=== PATIENT | male | born 1945 | race African-American/Black ===

== ENCOUNTER 2019-10-16 11:43 | Inpatient (IN) ==
--- NOTE | 2019-10-16 12:38 | Diag Imaging Result Doc PS360 ---
CHEST-1 VIEW - 10/16/2019 INDICATION: sob COMPARISON: None FINDINGS: There is significant cardiomegaly and pulmonary vascular congestion. There is diffuse interstitial pulmonary edema. There are some opacities in the right lung base that are likely a small to moderate pleural effusion. IMPRESSION: Congestive heart failure. Electronically signed by Kimo Ashton 10/16/2019 12:36 PM
[2019-10-16 14:09] LABS: BASO# 0.03 X1000 (0.0-0.2); BASO% 0.5 % (0.0-0.8); EOS# 0.07 X1000 (0.0-0.7); EOS% 1.1 % (0.0-10.0); HEMATOCRIT 27.2 % (42.0-52.0); HEMOGLOBIN 8.5 g/dL (14.0-18.0); IMM GRAN# 0.03 X1000 (0.0-0.04); IMM GRAN% 0.5 % (0.0-0.5); LYMPH# 0.87 X1000 (1.2-3.4); LYMPH% 14.3 % (20.5-51.1); MCH 26.3 PG (27-31); MCHC 31.3 g/dL (33-37); MCV 84.2 FL (81-99); MONO# 0.93 X1000 (0.11-0.59); MONO% 15.2 % (1.7-9.3); MPV 9.8 FL (7.4-10.4); NEUT# 4.17 X1000 (1.4-6.5); NEUT% 68.4 % (42.2-75.2); PLT 429 X1000 (130-400); RBC 3.23 XMIL (4.7-6.1); RDW 14.9 % (11.5-14.5)
[2019-10-16 14:18] LABS: INR 1.13; PROTIME 14.7 Seconds (11.0-16.0)
[2019-10-16 14:19] LABS: PTT 31.8 Seconds (22.3-41.8)
[2019-10-16] MEDS ORDERED: LASIX IV ONE ×2 (14:36→19:49)
[2019-10-16] MEDS ORDERED: D50W SYRINGE IV ONE (14:39)
[2019-10-16] MEDS ORDERED: D50W SYRINGE ONE (14:45)
[2019-10-16 15:49] LABS: ALB/GLOB RATIO 0.8; ALBUMIN 3.6 g/dL (3.5-5.0); CALCIUM 7.1 mg/dL (8.8-10.2); CREATININE 5.8 mg/dL (0.7-1.2); POTASSIUM 4.5 mmol/L (3.5-5.1); TOTAL BILIRUBIN 0.74 mg/dL (0.20-1.00); TOTAL PROTEIN 8.1 g/dL (6.3-8.3)
--- NOTE | 2019-10-16 16:08 | PROVIDER DOCUMENTATION ---
This chart was entered by Laura Alberto Scribe, acting as scribe for Thien Oscar MD. HPI-Respiratory General - General Chief Complaint: Shortness of Breath Stated Complaint: SOB,WEAKNESS,FLUID BUILD UP Time Seen by Provider: 10/16/19 12:08 Source: patient Allergies/Adverse Reactions: Patient Allergies Allergy/AdvReac Type Severity Reaction Status Date / Time No Known Allergies Allergy Verified 10/16/19 14:56 - History of Present Illness-Resp Nature of Presenting Problem: 74yom presents to ED cc intermittent SOB, fatigue and swelling of both lower legs and feet for last 2 weeks. Pt reports he is on Lasix and hasn't missed any doses. Pt denies CP/cough. Pt is seen by Dr. Egan for kidney disease. Quality of Pain: reports: fullness Severity in ED: reports: moderate Onset/Duration: reports: last week Timing: reports: still present, intermittent, changing over time Cough Quality/Degree: reports: no cough Current Respiratory Medication Therapy: Initiated see nurses note Modifying Factors: improves with: nothing Associated Symptoms: reports: shortness of breath, short of breath Similar Symptoms Previously?: No Recently seen or treated by another doctor?: No Review of Systems - Adult - REVIEW OF SYSTEMS - ADULT Constitutional: reports: see HPI, fatique. denies: chills, fever Eyes: reports: no symptoms reported Ears, Nose, Mouth & Throat: reports: no symptoms reported Cardiovascular: reports: see HPI, edema. denies: chest pain, palpitations Respiratory: reports: see HPI, shortness of breath. denies: cough, wheezing Gastrointestinal: reports: no symptoms reported Genitourinary: reports: no symptoms reported Musculoskeletal: reports: no symptoms reported Integumentary: reports: see HPI, other (swelling both legs and feet) Neurological: reports: no symptoms reported Psychiatric: reports: no symptoms reported Endocrine: reports: no symptoms reported Hematologic/Lymphatic: reports: no symptoms reported Allergic/Immunologic: reports: no symptoms reported All Other Systems: Reviewed and Negative Past History - Adult - PAST MEDICAL HISTORY-ADULT Review of Records: reports: Nursing Assessment Review, Medications Reviewed, Social history reviewed & non-contributory. Major Childhood Illnesses: reports: denies history Cardiovascular: reports: denies history Respiratory: reports: denies history Gastrointestinal: reports: denies history Obstetrical/Gynecological: reports: denies history Genitourinary: reports: denies history Musculoskeletal: reports: denies history Neurological: reports: denies history Endocrine/Immune: reports: denies history Other Conditions: reports: denies history - IMMUNIZATION STATUS Childhood Immunizations: See Nurse Assessment Flu Vaccine: See Nurse Assessment - FAMILY HISTORY Family History: reviewed, not pertinent Physical Exam-General - PHYSICAL EXAM-ADULT Initial Vital Signs Reviewed: Yes - CONSTITUTIONAL General Appearance: appears well, alert, no apparent distress. negative: anxious, combative - EYES Eyes: PERRL/EOMI, pink conjunctivae. negative: photophobia - HEAD, EARS, NOSE, MOUTH & THROAT HENMT: normocephalic/atraumatic, moist mucous membranes. negative: angioedema - NECK Neck: supple - RESPIRATORY Respiratory: chest non-tender, lungs clear, normal breath sounds. negative: wheezing - CARDIOVASCULAR Cardiovascular: normal peripheral pulses, regular rate, rhythm. negative: bradycardia, tachycardia - GASTROINTESTINAL (ABDOMEN) Abdominal Exam: normal bowel sounds, non tender, soft. negative: rebound - MUSCULOSKELETAL Extremity: pedal edema (bilateral). negative: deformity - SKIN Integumentary: normal color, swelling (bilateral lower legs). negative: diaphoresis, jaundice - PSYCHIATRIC Psych/Mental Status: normal mood/affect, oriented x 3. negative: anxious, disheveled - HEART Score HEART Score: History: Moderately Suspicious HEART Score: ECG: Non-Specific Repolarization Disturbance/LBBB/PM HEART Score: Age: > or = 65 Years HEART Score: Risk Factors for Atherosclerotic Disease: 1 or 2 Risk Factors HEART Score: Troponin: 1-3x Normal Limit Total HEART Score:: 6 Progress - PLAN OF CARE/RESULTS Progress/Plan/Lab Results: Vital Signs - 8 hr 10/16/19 11:51 Temperature 97.7 F Pulse Rate 83 Respiratory Rate 18 Blood Pressure 146/76 O2 Sat by Pulse Oximetry 90 L Laboratory Results - last 24 hr 10/16/19 10/16/19 10/16/19 13:15 13:15 14:38 WBC 6.10 RBC 3.23 L Hgb 8.5 L Hct 27.2 L MCV 84.2 MCH 26.3 L MCHC 31.3 L RDW Std Deviation 14.9 H Plt Count 429 H MPV 9.8 Immature Gran % (Auto) 0.5 Neut % (Auto) 68.4 Lymph % (Auto) 14.3 L [place] % (Auto) 15.2 H Eos % (Auto) 1.1 Baso % (Auto) 0.5 Immature Gran # (Auto) 0.03 Neut # (Auto) 4.17 Lymph # (Auto) 0.87 L [place] # (Auto) 0.93 H Eos # (Auto) 0.07 Baso # (Auto) 0.03 PT 14.7 INR 1.13 PTT (Actin FS) 31.8 Sodium Potassium Chloride Carbon Dioxide Anion Gap BUN Creatinine Estimated GFR/1.73 m2 BUN/Creatinine Ratio Glucose POC Glucose 48 L Calculated Osmolality Calcium Total Bilirubin AST ALT Alkaline Phosphatase Troponin T High Sens Mso-A-Oxrgllqmrdh Pept Total Protein Albumin Globulin Albumin/Globulin Ratio 10/16/19 10/16/19 10/16/19 14:54 14:54 14:54 WBC RBC Hgb Hct MCV MCH MCHC RDW Std Deviation Plt Count MPV Immature Gran % (Auto) Neut % (Auto) Lymph % (Auto) Wind[place] % (Auto) Eos % (Auto) Baso % (Auto) Immature Gran # (Auto) Neut # (Auto) Lymph # (Auto) [place] # (Auto) Eos # (Auto) Baso # (Auto) PT INR PTT (Actin FS) Sodium 138 Potassium 4.5 Chloride 97 L Carbon Dioxide 24 L Anion Gap 17 BUN 86 H Creatinine 5.8 H Estimated GFR/1.73 m2 12 BUN/Creatinine Ratio 15 Glucose 54 L POC Glucose Calculated Osmolality 299 Calcium 7.1 L Total Bilirubin 0.74 AST 23 ALT 14 Alkaline Phosphatase 83 Troponin T High Sens 103 H* Wfd-E-Dzyjoaddftv Pept 81617 H Total Protein 8.1 Albumin 3.6 Globulin 4.5 Albumin/Globulin Ratio 0.8 Orders Category Date Time Status FSBS [Finger Stick Blood Sugar (ED)] DIRECTED Care 10/16/19 13:56 Active NEWS Score 2-4:Order NEWS Lactate Series NOW Care 10/16/19 11:58 Active Diabetic Diet Diet 10/16/19 16:25 Active CHEST-1 VIEW [RAD] Stat Exams 10/16/19 12:09 Completed CBC WITH ELECTRONIC DIFF [HEME] Stat Lab 10/16/19 13:15 Completed COMPREHENSIVE METABOLIC PANEL [CHEM] Stat Lab 10/16/19 14:54 Completed PRO B-NATRIURETIC PEPTIDE Stat Lab 10/16/19 14:54 Completed PT [PROTIME WITH INR] [COAG] Stat Lab 10/16/19 13:15 Completed PTT [COAG] Stat Lab 10/16/19 13:15 Completed TROPONIN T HIGH SENSITIVITY Stat Lab 10/16/19 14:54 Completed Dextrose 50% Syringe [D50w Syringe] Med 10/16/19 14:45 Discontinued 50 ml .ROUTE .STK-MED ONE Dextrose 50% Syringe [D50w Syringe] Med 10/16/19 14:39 Discontinued 50 ml IV NOW ONE Furosemide [Lasix] Med 10/16/19 14:36 Discontinued 20 mg IV NOW ONE EKG [EKG] Stat Ther 10/16/19 12:09 Ordered At recheck, pt noted that he was breathing much better and agrees with plan to be admitted. Result Diagrams: 10/16/19 13:15 10/16/19 14:54 - XRAY 1 XRAY: Bilateral XRAY Study: Chest Impression: See EMR Report (IMPRESSION: Congestive heart failure. Electronically signed by Kimo Ashton 10/16/2019 12:36 PM) - CONSULTS/PCP/HOSPITALIST Notification #1 *Consult/PCP/Hospitalist*: Dr Cox for Dr Chery Time Discussed: 16:54 Consult Disposition: Will see in ED, Admit Departure - Departure Date of Disposition Decision: 10/16/19 Time of Disposition Decision: 16:06 DIAGNOSIS: CHF (congestive heart failure), ARF (acute renal failure), Anemia, Elevated troponin Disposition: ADMITTED INPATIENT 09 Certified Medical Emergency: Emergent Condition: Fair Additional Instructions: ED Follow Up Instructions: You have been treated by a care provider in the Emergency Department. These instructions are being provided to you so you can have an understanding of how to care for yourself upon discharge. Upon discharge from the Emergency Department, you are responsible for making arrangements for follow-up care by a physician of your choice. Take all prescribed medications as directed. Return to the Emergency Department immediately for any new or worsening sym ptoms. You may call the Physician Referral phone number at [phone] to obtain a list of Physicians who are taking new patients. Referrals and Follow-Ups: Eron Chery MD [Primary Care Provider] - - Critical Care Note This patient required my direct & personal management of CC.: No Attestation - Physician/ ONEIL Attestation Patient care was provided by Advanced Practice Provider:: No The physician spent face to face time with patient:: Yes Advanced Practice Provider documentation review:: Supervising physician onsite and consulted in the evaluation and care of this patient. The physician did have a face to face encounter with the patient. This chart was documented by the indicated scribe, (Laura Alberto, Anaibbri) and accurately reflects the services I performed and decisions made by me, Thien Oscar MD, as attested by the provider's signature.
[2019-10-16 18:14] LABS: ALLEN TEST YES; BE 0.5 mmoll (-3.0-3.0); BLOOD TYPE ARTERIAL; HCO3-(ACT) 25.2 mmoll (20.0-26.0); METHB 1.3 % (0.0-1.5); O2(CT) 10.8 mL/dL (15.0-23.0); PCO2(98.6) 41 mmHg (35-45); PO2(98.6) 56 mmHg (60-100); SAMPLE BLOOD; SAO2 92.4 % (95.0-100.0); THB 8.6 g/dL (11.5-17.4)
[2019-10-16 18:18] LABS: MODALITY CANNULA; O2HB 88.8 % (95.0-99.0)
--- NOTE | 2019-10-16 19:35 | HISTORY AND PHYSICAL ---
CHIEF COMPLAINT: Shortness of breath and swelling. HISTORY OF PRESENT ILLNESS: Patient is a 74-year-old male who has had some chronic renal failure and started getting short of breath actually for the last year, so he was started on some Lasix by his tripper. He sees Dr. Maria in [place]. He also sees the [place] doctors mostly in [place]. He sees Dr. Loera on occasion here in [place] and he sees Dr. Chery. He was under the impression that everything was fine. He had two stent placements several years ago, but he could not remember when, for his coronary vessels. He had noticed more shortness of breath recently and started having some more swelling in his feet. He had missed his Lasix for two or three days. He could not remember other numbers about this. PAST HISTORY: Includes hyperlipidemia, coronary artery disease, for which he has had stent placement, chronic kidney disease. He is unaware of previous congestive heart failure, and there were no records here as he has had no admissions here until today. He has had bilateral hip replacement. He has been given a little Lasix here in the emergency room and produced a little bit of urine, says he is better. I think this is more from his oxygen supplementation than from any true diuresis. FAMILY HISTORY: Includes five children, three sons, two daughters, all in good health. SOCIAL HISTORY: Not obtained at this time. REVIEW OF SYSTEMS: Neurological: Denies headaches, seizures, visual problems, hearing problems. Pulmonary: Has had some shortness of breath but no cough or wheezing. Cardiovascular: Denies chest pain, heart palpitations, PND, orthopnea. Has been short of breath. Gastrointestinal: Denies hematochezia, hematemesis, melena, constipation, diarrhea. Genitourinary: Denies any difficulty with urination. Musculoskeletal: Has had some arthritis. Had hip replacements bilaterally. Psychiatric: Denies depression, anxiety. Hematology: Does not know of any anemia previously. PHYSICAL EXAMINATION: VITAL SIGNS: Blood pressure 146/76, respirations 18, pulse 83, temperature 97.7 degrees Fahrenheit. Weight is 257 pounds. Height is 6 feet 1 inch tall. HEENT: He is normocephalic. EOMS intact. PERRLA. Throat clear. Fundi not seen well due to constriction of pupils. NECK: Supple without thyromegaly, lymphadenopathy, or carotid bruits. LUNGS: Have some scattered rales. Chest x-ray does show congestive heart failure with a large heart and pulmonary edema. ABDOMEN: Soft with active bowel sounds. No organomegaly or tenderness. GENITAL: External genitalia deferred. RECTAL: Exam deferred. NEUROLOGICAL: Cranial nerves II-XII intact grossly. Sensory motor intact. Reflexes 1+. LABORATORY DATA: Showed white count 6010, hemoglobin 8.5, hematocrit 27.2. I do not know whether this is chronic or not. The patient is unaware. Troponin was high at 103. ProBNP was 29,598. Glucose 54, creatinine 5.8, BUN 86. HOME MEDICATIONS: Have not gotten into the chart yet, but he is on Lipitor, Lasix, 70/30 Novolin, he does not know the amount, metoprolol. We will try to get the full list. PLAN: We will admit to the hospital. We will consult Cardiology and Nephrology. The patient probably needs dialysis. That would help clear up his pulmonary edema. I do not know whether this congestive heart failure is new or old. Do not know whether his anemia is new or old. FINAL DIAGNOSIS: 1. Congestive heart failure. 2. Renal failure. 3. Anemia. I do not know whether it is chronic or not. Admit to Dr. Chery. cc: MD Darian Zapata Jr, MD
[2019-10-16] MEDS ORDERED: NITROGLYCERIN TOP SCH (20:00)
[2019-10-16] MEDS ORDERED: LASIX 200 MG in NS 25 ML IV ONE (20:30)
[2019-10-16] MEDS ORDERED: HUMULIN R SUBQ SCH (21:00)
[2019-10-16] MEDS: SODIUM CHLORIDE 0.9% INJ SCH (21:55)
[2019-10-16] MEDS: HUMULIN R SUBQ SCH (21:55)
[2019-10-16] MEDS: NITROGLYCERIN TOP SCH (21:55)
[2019-10-16] MEDS: PROTONIX IV SCH (21:55)
[2019-10-17] MEDS: NITROGLYCERIN TOP SCH ×4 (03:56→21:17)
[2019-10-17] MEDS: HUMULIN R SUBQ SCH ×4 (06:14→21:18)
--- NOTE | 2019-10-17 07:58 | EKG Report ---
Test Performed on : 10/17/2019 07:32:35 AM Test Reason : cp Blood Pressure : / mmHG Vent. Rate : 092 BPM Atrial Rate : 092 BPM P-R Int : 166 ms QRS Dur : 082 ms QT Int : 412 ms P-R-T Axes : 062 012 214 degrees QTc Int : 509 ms Sinus rhythm. with premature atrial complexes. T wave abnormality, consider inferolateral ischemia Abnormal ECG No previous ECGs available Confirmed by Marilyn Henderson MD ([id number]) on 10/17/2019 4:19:54 PM
--- NOTE | 2019-10-17 08:18 | Diag Imaging Result Doc PS360 ---
EXAM: CHEST-2 VIEWS HISTORY: hypoxia TECHNIQUE: Two views COMPARISON: 10/16/2019 FINDINGS: Poor inspiratory effort. There is a moderate-sized right-sided pleural effusion and a small left pleural effusion. There is bibasilar atelectasis and infiltrates. Heart is enlarged. IMPRESSION: No interval improvement Electronically signed by Osman Hemphill 10/17/2019 8:15 AM
[2019-10-17] MEDS: LASIX IV SCH ×2 (09:30→22:00)
[2019-10-17] MEDS: SODIUM BICARBONATE PO SCH ×3 (09:36→16:37)
[2019-10-17] MEDS: ASPIRIN EC PO SCH (09:36)
--- NOTE | 2019-10-17 14:31 | PROVIDER PROGRESS NOTE ---
Progress Note Chief complaint: Saloni been short of breath. HPI: Mr. Cameron is a 74-year-old -[place] male who has chronic kidney disease stage 5 and coronary artery disease requiring stent placement. He says he has been progressively short of breath for the last year and especially the last 3 weeks. 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 He denies any chest pain, nausea and vomiting, decreased appetite, recent exposure to sickness, falls, or changes in urine color or frequency. Last night he was given high-dosed lasix and nitroglycerin paste that has improved his shortness of breath. His plan with our office was for placement of a PD catheter when the time came. Past medical history: chronic kidney disease stage five, coronary artery disease, hyperlipidemia. Past surgical history: Stent placement and bilateral hip replacement. Social history: He lives alone. He denies alcohol, tobacco, or illicit drug use. Family history: non-contributory Allergies: no known. Home medications: Amlodipine, aspirin, vitamin D2, Lasix, novolin 70/30, metoprolol, sodium bicarbonate. Review of systems: A 14 point review of systems complete. All pertinent positives listed above in the HPI. Physical exam: temperature 98.1, pulse 91, respirations 17, blood pressure 142/66, 02 sat 94% on 15% Venturi mask. General: -[place] male lying in bed in no acute distress. HEENT: normocephalic, atraumatic, pupils equal and reactive, mucous membranes moist. Skin: warm and dry Neck: supple, positive JVD with hepatojugular reflux Cardiovascular: S1S2 with a pericardial friction rub and gallop. regular rate and rhythm. Respiratory: lungs clear with equal air entry anteriorly Abdomen: soft, nontender, nondistended. Bowel sounds present. : not inspected, wakefield in place. Extremities: 3+ pitting edema up to hips. Neurological: alert and oriented to person place and time. Labs: intake 450, output 1250. Imaging: chest x-ray impression poor inspiratory effort. There is moderate sized right sided pleural effusion and a small left pleural effusion. There is bibasilar atelectasis and infiltrates. Heart is enlarged. Assessment and plan: Progression of chronic kidney disease and possible pericarditis. His last Creatinine in our office was 5.24 in July 2019. He received lasix and nitro that has helped alleviate his shortness of breath. His intentions were for PD treatment when the time came, however he has a pericardial friction rub present this AM. We will get an echocardiogram, consult cardiology, consult surgery for pd catheter and possible tunneled dialysis catheter placement, and make him NPO after midnight. ASA started by primary. Blood pressure. Stable. Fluid volume. Expanded. Lasix ordered. Anemia. Low, does not meet transfusion criteria. Electrolytes. Stable. Anion gap acidosis. Likely related to kidney failure. sodium bicarbonate increased to TID by primary. Medication review. ASA started.
[2019-10-17 14:39] LABS: MCH 26.9 PG (27-31); RDW 14.9 % (11.5-14.5)
[2019-10-17 15:30] LABS: HEMATOCRIT 26.1 % (42.0-52.0); HEMOGLOBIN 8.2 g/dL (14.0-18.0); MCHC 31.4 g/dL (33-37); MCV 85.6 FL (81-99); MPV 9.5 FL (7.4-10.4); RBC 3.05 XMIL (4.7-6.1); WBC 5.85 X1000 (4.8-10.8)
[2019-10-17 15:36] LABS: ALBUMIN 3.1 g/dL (3.5-5.0); CALCIUM 7.1 mg/dL (8.8-10.2); CREATININE 6.1 mg/dL (0.7-1.2); PHOSPHORUS 5.3 mg/dL (2.7-4.5); POTASSIUM 4.7 mmol/L (3.5-5.1)
--- NOTE | 2019-10-17 17:07 | CARDIOLOGY CONSULTATION ---
DATE: 10/17/2019 REQUESTING PHYSICIAN: Dr. Cox on behalf of Dr. Chery for dyspnea, swelling, and I believe elevated troponin. HISTORY: Mr. Cameron is a 74-year-old black gentleman who is known to have chronic kidney disease. He presented to the hospital yesterday at about 12:00 noon with complaint of several days of increasing dyspnea associated with progressive swelling of the lower extremities. The swelling has been getting more difficult to control even with diuretics. The patient says that he had seen Dr. Loera about a month ago at his office, and reportedly there was some talk about the possibility of initiating dialysis. The patient denies having chest pain. Denies syncope, palpitations, or fever. PAST MEDICAL HISTORY: Positive for coronary heart disease. Back in 2010, I believe he underwent some sort of coronary intervention. He actually had a heart catheterization on 09/29/2010. At that time, they found a complex LAD lesion, 60% and 40% eccentric 2010. LAD showed 60% mid complex stenosis. 40% proximal eccentric. Circumflex showed discrete 100% mid occlusion. That was after the 1st marginal branch. Right coronary artery had diffuse 30% stenosis. There were collaterals from the circumflex to circumflex branches. Since then, he has followed periodically with Dr. Loera at his office. His history is also positive for hypertension, hyperlipidemia, and diabetes mellitus type 2. He has some carotid artery stenosis by ultrasound done in November of 2018. The patient has had previous tonsillectomy and hip replacement twice. SOCIAL HISTORY: He is retired. He lives with his . He has had several children. Not a drinker nor a smoker. REVIEW OF SYSTEMS: Basically, revolves around the progressive swelling of the lower extremities, decreased functional capacity. He has not had any issues with recurrent angina, heart attacks, or stroke in the past 3 or 4 years. HOME MEDICATIONS: At the time of this dictation include the followin. He is on amlodipine 10 mg daily. 2. Aspirin 81 daily. 3. Vitamin D2 50,000 every week. 4. Lasix 40 mg daily. 5. Insulin NPH 70/30 20 units twice a day. 6. Metoprolol tartrate 25 mg twice a day. 7. Sodium bicarbonate 650 3 times a day. PHYSICAL EXAMINATION: Vital Signs: Blood pressure 142/66, temperature 91 degrees, pulse 91, and respirations 17. General: He is awake and alert. He has some shakiness. He has obvious flapping when asked to hyperextend his wrists. He appears to be a little bit toxic. HEENT: Prominent neck veins. Chest: Diminished breath sounds at bases. Decreased excursion. Dullness to percussion at bases. Heart: Sounds are regular rhythmic. He does have a definite pericardial friction rub. This is very well heard when the patient is sitting upright on the left sternal border. Abdomen: Nontender. There is no hepatomegaly. Extremities: Marked edema 3+ to 4+ bilaterally, brawny. Pulses are difficult to palpate. Neurological: He has the flapping. He appears to be a little confused. This is very subtle. He moves 4 extremities and follows commands. LABORATORY: His BUN today is 86, creatinine is 5.8. This is consistent with uremia. Carbon dioxide 24. Sodium 138, potassium 4.5. ProBNP 06385 mcg/mL. Troponin is 103 nanograms per liter. Hemoglobin 8.5 and hematocrit 27.2%. The chest x-ray that was done on admission showed congestive heart failure, and his EKG on admission shows sinus rhythm with diffuse repolarization abnormality. IMPRESSION: 1. Patient who is in a state of fluid overload. Basically, he has severe edema and this is clearly secondary to advanced renal insufficiency.Question of Diastolic HF , secondary to that. 2. The patient has pericardial friction rub, and he appears to be a little toxic consistent with uremia. 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 3. Abnormal EKG. This probably relates to long-term hypertension. 4. History of coronary heart disease, previous occlusion of mid circumflex, and stenosis of the LAD. 5. Anemia, chronic. 6. Diabetes mellitus type 2. 7. Dyslipidemia. RECOMMENDATIONS: At this point in time, the patient really needs to go and have a catheter inserted for urgent hemodialysis. Cardiac-phillip, I have reviewed his echocardiogram and what I see is a mild degree of pericardial effusion that appears to be circumferential. I would recommend to do inflammatory markers, which in all likelihood, they are going to be elevated due to the presence of uremic pericarditis. I will get a CT of the chest, and we will basically standby. We will be available if there is any need for us during this admission. At this point in time, it is very clear that the renal failure has to be addressed. 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 cc: MD Darian Huff MD MTDD
--- NOTE | 2019-10-17 18:52 | GENERAL SURGERY CONSULTATION ---
DATE: 10/17/2019 REASON FOR CONSULTATION: Insertion of peritoneal dialysis catheter REQUESTING PHYSICIAN: Dr. Ever Loera. HISTORY OF PRESENT ILLNESS: This is a 74-year-old male with chronic kidney disease who recently has been having more swelling and shortness of breath. He was found to be in worsening kidney failure. He was also found to have a pericardial friction rub and effusion and is going to need dialysis access this admission. PAST MEDICAL HISTORY: Chronic kidney disease, hyperlipidemia, coronary artery disease, diabetes. PAST SURGICAL HISTORY: Coronary stent placement, bilateral hip replacement. SOCIAL HISTORY: Lives alone. No tobacco, alcohol or illicit drug use. FAMILY HISTORY: Reviewed and noncontributory. ALLERGIES: No known drug allergies. HOME MEDICATIONS: Amlodipine, aspirin, vitamin D, Lasix, Novolin 70/30, metoprolol, sodium bicarbonate. REVIEW OF SYSTEMS: Ten systems reviewed and negative except as noted above. PHYSICAL EXAMINATION: Vital Signs: Temperature 98.5 degrees, pulse 89, respirations 18, blood pressure 134/67. O2 saturation 95%. General: Well-developed elderly male in no distress who looks stated age. HEENT: Normocephalic, atraumatic. Extraocular muscles intact. Pupils equal, round, reactive to light. Sclerae anicteric. Moist mucous membranes. Neck: Supple. No thyromegaly. Cardiovascular: Regular rate and rhythm. He does have a pericardial friction rub. Gastrointestinal: Abdomen soft, nontender, nondistended. No organomegaly or mass. Extremities: He does have edema in his legs. No clubbing or cyanosis. Musculoskeletal: Moves all extremities equally and well. LABORATORY: White blood cell count 5.8, hemoglobin 8.2, hematocrit 26.1, platelet count 388,000. Electrolytes reviewed and notable for BUN 88, creatinine 6.1, potassium 4.7. ASSESSMENT AND PLAN: A 74-year-old male with worsening chronic kidney disease now with evident pericarditis and need for urgent dialysis. Dr. Loera has requested a peritoneal dialysis catheter and tunneled dialysis catheter if needed per Cardiology recommendations. It appears that their note does specify the need for more urgent hemodialysis. Therefore, I would recommend placement of tunneled hemodialysis catheter as well as laparoscopic peritoneal dialysis catheter placement tomorrow. I discussed the risks and benefits of these including bleeding, infection, catheter malfunction, injury to the bowel, pneumothorax, and other imponderables. He understands and agrees to proceed. cc: MD Darian Mckeon MD
[2019-10-17] MEDS: PROTONIX IV SCH (21:17)
--- NOTE | 2019-10-17 22:21 | PROGRESS NOTE ---
DATE: 10/17/2019 SUBJECTIVE: A 74-year-old male who was not seen in my office since December of last year. He also goes to [facility] for maintenance care. He has nonischemic coronary artery disease, chronic kidney disease. Apparently, he was short of breath for the last 3 weeks and he has a stage 4 chronic kidney disease. He was admitted by Dr. Cox last night. I did examine the patient in the emergency room. He was extremely tachycardic and sitting in the upright position on Ventimask. He has 4+ pedal edema. Chest x-ray cardiomegaly with CHF. I spoke to Dr. Loera. He might need dialysis. He is getting close. He and I discussed on the telephone. We placed the Eason catheter with resistance subsequently requiring coude catheter. Immediately 200 mL of urine came out. He was given 200 of Lasix. Admitted to the hospital. He was also consult by gravel wheeler. He had 1250 mL of urine came out. PAST MEDICAL HISTORY: Reviewed. PAST SURGICAL HISTORY: Reviewed. MEDICINES: Are reviewed. On the floor, he has his girlfriend at the bedside. He is much better than last night. OBJECTIVE: Vital signs: Temperature is 98 degrees, pulse 89. Vitals are stable. He is on Ventimask on 95%. HEENT: Within normal limits. Lungs: He has decreased breath sounds on the right base. Heart: Sounds are regular with pericardial rub. Abdomen: Belly is soft, nontender, obese. Extremities: 3+ pedal edema noted. LABS: This morning, white cell count 5.8, hematocrit 26, platelets 388,000. ABG, pH is 7.40, pCO2 41, PO2 56 on 36%. SMA 7: Sodium 136, potassium 4.7, chloride 97, BUN 88, creatinine 6.1, glucose 118, calcium 7.1. CRP was high. Albumin 3.1. Plasma lactate is 1.1. Chest x-ray moderate pleural effusion on the right side. EKG: Sinus rhythm with PACs, nothing acute. ASSESSMENT AND PLAN: 1. History of congestive heart failure volume overload. 2. Noncritical coronary artery disease, diastolic dysfunction. 3. End-stage kidney disease. 4. Hypertension. 5. Vitamin D deficiency. 6. Type 2 diabetes. PLAN OF CARE: 1. I spoke to Dr. Loera and he has agreed he needs temporary dialysis. He is making the arrangements with Dr. Toro and appreciated Dr. Wilkinson's consult. Slowly reconcile his home medications. 2. Type 2 diabetes. We can use a sliding scale with insulin coverage. 3. Vitamin D deficiency on replacement. 4. Gastrointestinal prophylaxis on Protonix and we will follow up. LEVEL OF DOCUMENTATION: 35 minutes. cc: Darian Chery MD
--- NOTE | 2019-10-17 23:01 | ECHO REPORT ---
ORDER DATE: 10/16/2019 MEASUREMENTS: Septal thickness 1.2, left ventricular internal diameter in diastole 4.8, posterior wall thickness 1.2, left ventricular internal diameter in systole 4.0, aortic root 3.2, left atrium 4.5. SUMMARY: 1. Fair quality study. 2. Very mild sclerosis of trileaflet aortic valve demonstrated, with normal aortic valve opening evident. The peak gradient across the aortic valve is less than 10 mmHg. Mitral, tricuspid and pulmonic valves are without evidence of structural abnormality, with mild mitral regurgitation, mild tricuspid regurgitation, and mild pulmonic insufficiency. The estimated systolic PA pressure by Doppler is 65 to 70 mmHg, suggesting moderate to severe pulmonary hypertension. The aortic root is normal in size. 3. Normal left ventricular chamber size with mild concentric left ventricular hypertrophy is demonstrated. The estimated left ventricular ejection fraction is approximately 40% in the setting of global hypokinesis. The left atrium is mildly to moderately enlarged. The right atrium and right ventricle are mildly enlarged. Right ventricular systolic function appears grossly preserved. 4. Small posterior pericardial effusion demonstrated. 5. Appearance of the inferior vena cava suggests elevated central venous pressure. cc: MD Darian Steele MD
[2019-10-18] MEDS: NITROGLYCERIN TOP SCH ×4 (03:45→23:20)
[2019-10-18] MEDS: HUMULIN R SUBQ SCH ×4 (06:24→23:18)
[2019-10-18] MEDS ORDERED: TIGHT: 0.2 ML/HR FOR DIALYSIS MISC PRN (06:29)
[2019-10-18] MEDS ORDERED: HEPARIN IV PRN (06:29)
[2019-10-18] MEDS ORDERED: NS 2,000 ML MISC PRN (06:29)
[2019-10-18 08:17] LABS: HEMATOCRIT 25.9 % (42.0-52.0); MCHC 30.9 g/dL (33-37); MCV 87.5 FL (81-99); RBC 2.96 XMIL (4.7-6.1); WBC 6.12 X1000 (4.8-10.8)
--- NOTE | 2019-10-18 08:48 | Diag Imaging Result Doc PS360 ---
EXAM: CT THORAX W/O CONTRAST 10/17/2019 HISTORY: Dyspnea, volume overload TECHNIQUE: This exam was performed using automated exposure control, adjustment of mA or kV according to patient size, and/or use of iterative reconstruction technique. COMMENT: There are bilateral pleural effusions. There are no previous studies available for comparison. The volume of fluid on the right is larger than on the left. There is also cardiomegaly and pericardial effusion, the latter measuring over 13 mm anterior to the right atrium. There is compressive atelectasis in the lower lobes and inferior lingula. The right lower lobe is nearly completely airless. There is some compressive atelectasis of the right upper lobe. There is considerable coronary atherosclerotic calcification. There are some granulomatous calcifications present particularly in the right lower lobe. There are some calcified nodes in the pablito. The regional skeleton appears to be intact. IMPRESSION: 1. Bilateral pleural effusions, right greater than left. 2. Cardiomegaly with pericardial effusion, and atherosclerotic coronary calcifications. 3. Compressive atelectasis as described. The possibility of right lower lobe pneumonia cannot be excluded. Electronically signed by Delbert Wright 10/18/2019 8:46 AM
[2019-10-18 08:50] LABS: ALBUMIN 3.4 g/dL (3.5-5.0); CALCIUM 7.1 mg/dL (8.8-10.2); CREATININE 6.3 mg/dL (0.7-1.2); PHOSPHORUS 5.2 mg/dL (2.7-4.5); POTASSIUM 4.6 mmol/L (3.5-5.1)
[2019-10-18] MEDS: LASIX IV SCH ×2 (09:04→23:20)
[2019-10-18] MEDS: ASPIRIN EC PO SCH (09:04)
[2019-10-18] MEDS: LOPRESSOR PO SCH ×2 (09:04→23:16)
[2019-10-18] MEDS: SODIUM BICARBONATE PO SCH ×3 (09:05→17:42)
[2019-10-18] MEDS ORDERED: NIMBEX ONE (12:53)
[2019-10-18] MEDS ORDERED: DIPRIVAN 1% ONE (12:56)
[2019-10-18] MEDS ORDERED: NS 250 ML ONE (12:58)
[2019-10-18] MEDS ORDERED: SENSORCAINE 0.5%-EPI 1:200,000 ONE (12:58)
[2019-10-18] MEDS ORDERED: KEFZOL 2 GM/D5W 2 GM/50 ML IVPB IV ONE (13:00)
[2019-10-18] MEDS ORDERED: SUFENTA ONE (13:05)
[2019-10-18] MEDS ORDERED: KEFZOL 1 GM/D5W 2 GM/100 ML IVPB ONE (13:07)
[2019-10-18] MEDS ORDERED: NS 500 ML ONE (13:09)
[2019-10-18 13:35] LABS: HEPATITIS PROFILE ACUTE SEE COMMENTS
[2019-10-18] MEDS ORDERED: ROBINUL ONE (15:00)
[2019-10-18] MEDS ORDERED: DUONEB (A & A) INH ONE (15:16)
--- NOTE | 2019-10-18 15:27 | Diag Imaging Result Doc PS360 ---
EXAM: CHEST-PORTABLE 10/18/2019 HISTORY: s/p cvl TECHNIQUE: AP portable upright at 1517 COMMENT: Compared to the previous study of 10/17/2019 there is less apparent pleural fluid on the right. The right internal jugular central venous catheter is present with its tip in the right atrium. There is no evidence of pneumothorax. There is atelectasis or pneumonia in both lower lobes. The heart size is slightly enlarged. IMPRESSION: Slightly improved right pleural effusion. Bibasilar atelectasis and cardiomegaly. Electronically signed by Delbert Wright 10/18/2019 3:24 PM
[2019-10-18] MEDS ORDERED: DUONEB (A & A) ONE (15:38)
--- NOTE | 2019-10-18 17:02 | PROVIDER PROGRESS NOTE ---
Progress Note Subjective: He complains of a nose bleed but voices feeling better. Significant other at bedside. Objective: temperature 98.2, pulse 106, 18, blood pressure 131/73, 02 sat 91% on room air. General: -Ivorian male lying in bed in no acute distress. HEENT: normocephalic, atraumatic, pupils equal and reactive, mucous membranes moist. Skin: warm and dry Neck: supple, positive JVD with hepatojugular reflux Cardiovascular: S1S2 with a pericardial friction rub not as loud as yesterday and a gallop. regular rate and rhythm. Respiratory: lungs clear with equal air entry anteriorly Abdomen: soft, nontender, nondistended. Bowel sounds present. : not inspected, wake[place] in place. Extremities: 3+ pitting edema up to hips. Neurological: alert and oriented to person place and time. Labs: WBC 6.12, hemoglobin 8.0, hematocrit 25.9, platelet count 367, sodium 141, potassium 4.6, chloride 99, carbon dioxide 23, BUN 95, creatinine 6.3. Intake 490, output 2200. Impression: Progression of chronic kidney disease and possible pericarditis. BUN and Creatinine rising over the last 3 days. He is now having nose bleeds and evidence of pericarditis. We will have surgery place a PD catheter for his long- term treatment plan and a tunnel catheter to bridge for short-term hemodialysis. He will have a short dialysis treatment today and anticipate hemodialysis for the next couple of days consecutively. Blood pressure. Stable. Fluid volume. Expanded. Remains on lasix but will be starting hemodialysis today. Anemia. Low, does not meet transfusion criteria. Electrolytes. Stable. Anion gap acidosis. Likely related to kidney failure. sodium bicarbonate in place. Manage with hemodialysis Medication review. Home dose of metoprolol restarted.
[2019-10-18] MEDS ORDERED: ULTRAM PO PRN (17:43)
--- NOTE | 2019-10-18 18:19 | OPERATIVE NOTE ---
PROCEDURE DATE: 10/18/2019 PREOPERATIVE DIAGNOSES: 1. Acute on chronic kidney disease. 2. Pericarditis. POSTOPERATIVE DIAGNOSES: 1. Acute on chronic kidney disease. 2. Pericarditis. SURGEON: Andrew Toro MD DIGITAL RETOUCHER: Sliva Tse MS 3. ANESTHESIA: General. ESTIMATED BLOOD LOSS: 20 mL. COMPLICATIONS: None apparent. SPECIMENS: None. FINDINGS: The catheter was placed in the pelvis with good flow into the peritoneal cavity and out of the catheter. The PD catheter appeared to be functioning well. The right internal jugular vein was found with ultrasound, it was compressible, patent without thrombus and the tip of the hemodialysis catheter was left at the superior vena cava right atrial junction under fluoroscopy. TECHNIQUE: The patient was brought to the operating room and placed supine on the table. His abdomen was prepped and draped in the usual sterile fashion. 0.5% Marcaine with epinephrine was used to anesthetize our incisions. An 11 mm incision was made in the upper midline. The fascia was exposed and incised sharply. Entry into the peritoneal cavity was obtained under direct vision with the Optiview device. Pneumoperitoneum was established. The camera was inserted. There was no evidence of injury to underlying structures. He was then placed in Trendelenburg. A 5 mm incision and port were placed under direct vision in the right lower quadrant. The bowel was reflected out of the pelvis. I then made an incision below the umbilicus to the left of midline with a knife and carried it down to the anterior rectus sheath. The sheath was incised with cautery. A 2-0 Prolene pursestring suture was placed around this opening. I then tunneled the peritoneal dialysis catheter in a subfascial plane and brought it out in the inferior direction through the peritoneum and then directed it down into the pelvis. The proximal cuff was left in a subfascial position. The subcutaneous cuff was left in a subcutaneous position. It was brought out through a 2nd incision in the left lower quadrant and tunneled out to that incision. Saline was instilled into the pelvis through the catheter successfully and then emptied successfully to gravity drainage. The Prolene suture was cinched down around the catheter to close the rectus fascia. I made a small incision in the lower suprapubic midline and passed a 2-0 Prolene with the Edvin-Cm device around the catheter to secure it in a caudal direction. The Prolene was tied down. We then capped the catheter and removed our ports and desufflated the abdomen. The epigastric port site fascia was closed with a [id number] 0 Vicryl. The skin was closed with 4-0 subcuticular Biosyn and Steri-Strips. He was placed in Trendelenburg. The right chest and neck were prepped and draped in the usual sterile fashion. The right internal jugular vein was found with ultrasound. The skin over the vein was anesthetized with 0.5% Marcaine. A small incision was made with 11 blade. The internal jugular vein was then accessed under ultrasound guidance drawing back dark nonpulsatile blood. The wire passed through the needle into the right atrium and was confirmed to be there with fluoroscopy. A counter incision was made below the right clavicle. A 24 cm curved cuffed hemodialysis catheter was then tunneled subcutaneously from the lower incision out through the neck incision. The tract over the wire was sequentially dilated, a sheath was passed over the wire, the internal dilator and wire were removed. The catheter was passed into the sheath. The sheath was removed, the tip of the catheter was positioned correctly with fluoroscopy. Both ports antoinette back blood easily and were flushed with saline. Sterile caps were applied. The hub was anchored to the skin with nylon suture. The neck incision was closed with a subcuticular 3-0 Polysorb. He was awakened in stable condition and transferred to the recovery room without apparent complications. cc: MD Darian Mckeon MD
--- NOTE | 2019-10-18 20:18 | PROGRESS NOTE ---
DATE: 10/18/2019 SUBJECT: Appreciated consultants. The patient's breathing is better. Complains of bleeding per nostril and he is getting the tunneled catheter and peritoneal catheter. He is willing to go for chronic peritoneal dialysis. REVIEW OF SYSTEMS: Decreased shortness of breath. EXAM: He is tachycardic. Vitals are stable.HEENT: Exam small bleeding noted on the right side of the nose. Heart: He has a pericardial rub, tachycardic with a flow murmur in the left lower sternal border. Lungs: Decreased breath sounds right base. Abdomen: Belly is soft, nontender. Extremities: 3+ pedal edema. LABORATORY DATA: CBC: White cell count 6.1, hematocrit 25.9, platelets 367,000. Sodium 141, potassium 4.6, BUN 95, creatinine 6.3. He has a Eason catheter placed. LDL is about 101. Hepatitis panel was negative. Chest x-ray: Right pleural effusion. CT chest reported bilateral pleural effusion, right worse than the left side, cardiomegaly with pericardial effusion, compressive atelectasis. Echocardiography findings: Mild sclerosis of aortic valve, pulmonary hypertension, LV hypertrophy, ejection fraction 40%, small posterior pericardial effusion. ASSESSMENT AND PLAN: 1. End-stage kidney disease. 2. Congestive heart failure with systolic dysfunction. 3. Pulmonary hypertension. 4. Pleural effusions, right side worse than the left side. 5. Pericarditis. 6. Type 2 diabetes. 7. Epistaxis. PLAN OF CARE: 1. He is waiting for a tunnel catheter on the right side by Dr. oTro. Wants maintenance dialysis with peritoneal dialysis. 2. Reconcile home medicines. Added on Lopressor and discussed with the family as well as Dr. Loera and will follow up his plans. LEVEL OF DOCUMENTATION: 35 minutes. cc: Darian Chery MD
[2019-10-18] MEDS: PROTONIX IV SCH (23:20)
[2019-10-18] MEDS: SODIUM CHLORIDE 0.9% INJ SCH (23:20)
[2019-10-19] MEDS: NITROGLYCERIN TOP SCH ×4 (04:36→22:02)
[2019-10-19 05:26] LABS: HEMATOCRIT 24.4 % (42.0-52.0); HEMOGLOBIN 7.3 g/dL (14.0-18.0); MCH 25.6 PG (27-31); MCHC 29.9 g/dL (33-37); MCV 85.6 FL (81-99); MPV 9.3 FL (7.4-10.4); RBC 2.85 XMIL (4.7-6.1); WBC 6.67 X1000 (4.8-10.8)
[2019-10-19 05:57] LABS: ALBUMIN 2.9 g/dL (3.5-5.0); CALCIUM 7.1 mg/dL (8.8-10.2); CREATININE 4.8 mg/dL (0.7-1.2); PHOSPHORUS 5.1 mg/dL (2.7-4.5); POTASSIUM 4.3 mmol/L (3.5-5.1)
[2019-10-19] MEDS: HUMULIN R SUBQ SCH ×5 (06:08→21:52)
[2019-10-19] MEDS ORDERED: TIGHT: 0.2 ML/HR FOR DIALYSIS MISC PRN (06:17)
[2019-10-19] MEDS ORDERED: HEPARIN IV PRN (06:17)
[2019-10-19] MEDS ORDERED: NS 2,000 ML MISC PRN (06:17)
--- NOTE | 2019-10-19 08:08 | Diag Imaging Result Doc PS360 ---
EXAM: US RENAL 2 (RETROPER) COMPLETE 10/19/2019 HISTORY: new start on dialysis/ fluid volume shift TECHNIQUE: Renal ultrasound COMMENT: There is no evidence of hydronephrosis or mass. The right kidney is hyperechoic in appearance. The left kidney is not as well demonstrated. The right kidney measures 10.5 x 5.4 x 3.7 cm the left is 10.7 x 5.2 x 5 cm. The bladder volume is 126 mL. IMPRESSION: Medical renal disease. No evidence of obstructive uropathy. Electronically signed by Delbert Wright 10/19/2019 8:06 AM
--- NOTE | 2019-10-19 10:17 | GENERAL SURGERY PROGRESS NOTE ---
DATE: 10/19/2019 SUBJECTIVE: The patient is doing well. He denies abdominal pain, nausea, or vomiting. He is currently receiving hemodialysis. OBJECTIVE: Vital Signs: He is afebrile. Vital signs are stable. General: He is awake, alert, oriented x3. No acute distress. Chest: Tunneled dialysis catheter is intact. No hematoma. Minimal bloody ooze under the bandage. GI: Soft, nontender, nondistended. Incisional dressing is clean and dry. Peritoneal dialysis catheter is intact without drainage around it. LABORATORY DATA: White blood cell count 6, hemoglobin 7.3, hematocrit 24. Electrolytes were reviewed and show improved BUN and creatinine. IMAGING: Postoperative chest x-ray yesterday showed no pneumothorax. ASSESSMENT AND PLAN: A 74-year-old male status post tunneled hemodialysis catheter placement, as well as laparoscopic peritoneal dialysis catheter placement. There are no surgical complications at this point. We will see him back in the office in a couple of weeks. cc: MD Darian Mckeon MD
[2019-10-19] MEDS ORDERED: MYLICON DROPS PO PRN (10:39)
[2019-10-19] MEDS: ASPIRIN EC PO SCH (12:30)
[2019-10-19] MEDS: LOPRESSOR PO SCH ×2 (12:31→22:02)
[2019-10-19] MEDS: LASIX IV SCH ×2 (12:31→21:58)
[2019-10-19] MEDS: SODIUM BICARBONATE PO SCH ×3 (12:31→16:37)
--- NOTE | 2019-10-19 16:24 | PROVIDER PROGRESS NOTE ---
Progress Note Subjective: Voices being able to lie flat and is having less trouble with shortness of breath. His only complaint is of some abdominal gas like pain. Objective: temperature 98.2, pulse 92, respirations 20, blood pressure 145/69, 02 sat 97% on 2 L nasal cannula General: -Pakistani male lying in bed in no acute distress getting an ultrasound. HEENT: normocephalic, atraumatic, pupils equal and reactive, mucous membranes moist. Skin: warm and dry Neck: supple, positive Cardiovascular: S1S2 with a pericardial friction rub. regular rate and rhythm. Respiratory: lungs clear with equal air entry anteriorly Abdomen: soft, nontender, nondistended. Bowel sounds present. : not inspected Extremities:2+ pitting edema up to hips. Neurological: alert and oriented to person place and time. Labs: WBC 6.67, hemoglobin 7.3, hematocrit 24.4, platelet count 353, sodium 138, potassium 4.3, chloride 99, carbon dioxide 25, BUN 67, creatinine 4.8, albumin 2.9. Intake 825, output 3970. Impression: Progression of chronic kidney disease and possible pericarditis. He achieved 2L ultrafiltration with hemodialysis yesterday. He will receive hemodialysis again with a 3K bath, with a 2 to 3 L ultrafiltration attempt, for 3.5 hours. Blood pressure. Stable. Fluid volume. Expanded. Remains on Lasix and will receive hemodialysis today Anemia. Low, does not meet transfusion criteria. Anticipate blood transfusion soon. Electrolytes. Stable. Acid base balance. Stable. Nutrition. 40meq Potassium restriction added. Medication review. Simethicone ordered.
--- NOTE | 2019-10-19 19:37 | PROGRESS NOTE ---
DATE: 10/19/2019 SUBJECTIVE: The patient has right-sided tunnel catheter as well as PD catheter noted done by Dr. Toro. The patient was seen in the dialysis center. He is doing much better. His breathing status is much improved. OBJECTIVE: Is 98.7 degrees, pulse 86 and vitals are stable. Weight is 238 pounds. I's and O's was negative by 6 L. Lungs: Decreased breath sounds right base. Heart: Sounds are regular, decreased pericardial rub. Neurological: No obvious deficits. CBC: White cell count 6.6, hematocrit 24, platelets 353,000. Sodium 138, potassium 4.3, BUN 67, creatinine 4.8, phosphorus 5.1. ASSESSMENT AND PLAN: 1. Pericarditis due to uremia. 2. End-stage kidney disease on hemodialysis. 3. Type 2 diabetes on sliding scale with insulin coverage. 4. Anemia due to chronic kidney disease. 5. Hypertension is stable. Plan is hemodialysis as per Dr. Loera planning for peritoneal dialysis in the future. 6. Diabetes on sliding scale with insulin coverage. 7. Epistaxis is better. 8. Slowly reconcile home medicines and will do a chest x-ray in the morning and so far he was negative about 7 L of fluid. He had dialysis 2 hours yesterday and 4 hours today. LEVEL OF DOCUMENTATION: 25 minutes. cc: Darian Chery MD
[2019-10-19] MEDS: PROTONIX IV SCH (21:53)
[2019-10-19] MEDS: SODIUM CHLORIDE 0.9% INJ SCH (21:53)
[2019-10-20] MEDS: NITROGLYCERIN TOP SCH ×2 (03:30→12:08)
[2019-10-20 05:41] LABS: HEMATOCRIT 23.7 % (42.0-52.0); HEMOGLOBIN 7.3 g/dL (14.0-18.0); MCH 26.6 PG (27-31); MCHC 30.8 g/dL (33-37); MCV 86.5 FL (81-99); RBC 2.74 XMIL (4.7-6.1); RDW 14.9 % (11.5-14.5); WBC 7.58 X1000 (4.8-10.8)
[2019-10-20 05:52] LABS: ALBUMIN 2.9 g/dL (3.5-5.0); CALCIUM 7.1 mg/dL (8.8-10.2); CREATININE 3.9 mg/dL (0.7-1.2); IRON SATURATION 14 %; POTASSIUM 3.9 mmol/L (3.5-5.1); TIBC 161 ug/dL; TOTAL IRON 22 ug/dL (53-167); UNBOUND IRON 139 ug/dL (112-346)
[2019-10-20 06:04] LABS: FERRITIN 1133 ng/mL (30-400)
[2019-10-20] MEDS: HUMULIN R SUBQ SCH ×4 (06:40→20:18)
[2019-10-20] MEDS ORDERED: HEPARIN IV PRN (07:47)
[2019-10-20] MEDS ORDERED: NS 2,000 ML MISC PRN (07:47)
[2019-10-20] MEDS: LOPRESSOR PO SCH ×2 (12:04→20:17)
[2019-10-20] MEDS: SODIUM BICARBONATE PO SCH ×4 (12:06→16:19)
[2019-10-20] MEDS: VITAMIN D PO SCH (12:07)
[2019-10-20] MEDS: LASIX IV SCH (12:07)
[2019-10-20] MEDS: ASPIRIN EC PO SCH (12:07)
[2019-10-20] MEDS: VENOFER 200 MG in NS 150 ML IV SCH (12:35)
--- NOTE | 2019-10-20 13:28 | Diag Imaging Result Doc PS360 ---
EXAM: CHEST-2 VIEWS HISTORY: hypoxia TECHNIQUE: Two views COMPARISON: 10/18/2019 FINDINGS: There is a small to moderate-sized right-sided pleural effusion and trace left pleural fluid. The heart remains enlarged. There is mild pulmonary edema. There is bilateral basilar atelectasis and infiltrates. No change in the right jugular line. No pneumothorax. IMPRESSION: Mild interval worsening Electronically signed by Osman Hemphill 10/20/2019 1:26 PM
--- NOTE | 2019-10-20 16:56 | NEPHROLOGY PROGRESS NOTE ---
DATE: 10/20/2019 SUBJECTIVE: He is on dialysis currently. He states he feels well and is improving. He has been ambulatory with no shortness of breath. He still has no chest pain. OBJECTIVE: Vital Signs: Blood pressure 134/62, heart rate 82, respirations 16, T-max 99.1 degrees. General: In no acute distress. Skin: Warm and dry. Conjunctivae are pink. Neck: Neck veins are not distended. Heart: Regular. No gallops. His rub is somewhat intermittent now. Lungs: Clear. Abdomen: Soft, nontender. Bowel sounds present. Extremities: With trace edema. No clubbing or cyanosis. IMPRESSION: 1. Chronic kidney disease, stage 5D. He is tolerating dialysis well. We will repeat treatment again tomorrow if he is still an inpatient. 2. Volume status. Chest x-ray with increasing right pleural effusion, but really minimal pulmonary edema to my eye. His Eason catheter is now out. Given that he is on dialysis I will stop his high-dose Lasix. 3. Hypertension. Blood pressure is improved. I will discontinue his nitroglycerin paste. 4. Pericarditis. Continue dialysis again tomorrow. 5. Anemia. Continue IV iron. Hemoglobin is 8.5 and so it has improved modestly over the last 2 days. No bleeding. cc: MD Darian Rodriguez MD
--- NOTE | 2019-10-20 18:44 | PROGRESS NOTE ---
DATE: 10/20/2019 SUBJECTIVE: I spoke to the patient's girlfriend in the room and saw the patient in the dialysis clinic. He had dialysis yesterday. So far, removed 10 L of fluid. He has intermittent shortness of breath. He also had a PD catheter. He is not offering any complaints. OBJECTIVE: Temperature is 98 degrees. Pulse is 93. Blood pressure is stable. 91% on nasal cannula on 3%. He has decreased pericardial rub and decreased breath sounds on the right base. Belly is soft, nontender. Decreased edema in both legs. INVESTIGATIONS: CBC: White cell count 7.5, hematocrit 23, platelets 319,000. Sodium 138, potassium 3.9, BUN 45, creatinine 3..8, glucose 142, and CRP was high. Triglycerides 66, cholesterol 159, LDL 109. Hepatitis panel was negative. B12 was slightly high. Folic acid is low. ASSESSMENT: 1. Congestive heart failure due to systolic dysfunction with noncritical coronary artery disease. 2. Right pleural effusion. 3. End-stage kidney disease. 4. Ongoing diabetes. 5. Epistaxis. PLAN OF CARE: 1. Continue hemodialysis, PD catheter down the line once his situation improves. 2. Uremic pericarditis better and folic acid deficiency. IV folic acid and continue the hemodialysis as per Dr. Loera. 3. For blood sugar. Continue to be treated with a sliding scale with insulin coverage. Since the EF is down. I just added low dose of lisinopril since he is not allergic to any ASHANTI inhibitors and Dr. Guidry is going to follow up over the weekend and reassess again on Wednesday. LEVEL OF DOCUMENTATION: 25 minutes. cc: Darian Chery MD MTDD
[2019-10-20] MEDS: PROTONIX IV SCH (20:17)
[2019-10-20] MEDS: SODIUM CHLORIDE 0.9% INJ SCH (20:17)
[2019-10-20] MEDS: FOLIC ACID 5 MG in NS 50 ML IV SCH (20:19)
[2019-10-21] MEDS: HUMULIN R SUBQ SCH ×4 (06:00→22:07)
[2019-10-21 06:04] LABS: HEMATOCRIT 24.9 % (42.0-52.0); HEMOGLOBIN 7.7 g/dL (14.0-18.0); MCH 26.9 PG (27-31); MCHC 30.9 g/dL (33-37); MCV 87.1 FL (81-99); MPV 10.4 FL (7.4-10.4); RBC 2.86 XMIL (4.7-6.1); RDW 14.7 % (11.5-14.5); WBC 8.37 X1000 (4.8-10.8)
[2019-10-21 06:28] LABS: ALBUMIN 3.1 g/dL (3.5-5.0); CALCIUM 7.6 mg/dL (8.8-10.2); CREATININE 3.5 mg/dL (0.7-1.2); PHOSPHORUS 3.4 mg/dL (2.7-4.5); POTASSIUM 3.9 mmol/L (3.5-5.1)
[2019-10-21] MEDS ORDERED: NS 2,000 ML MISC PRN (08:01)
[2019-10-21] MEDS ORDERED: HEPARIN IV PRN (08:01)
--- NOTE | 2019-10-21 11:34 | PROGRESS NOTE ---
DATE: 10/21/2019 SUBJECTIVE: A 74-year-old gentleman, admitted with increasing shortness of breath, leg swelling. The patient does have history of chronic kidney disease. Patient is getting dialysis. The patient also had peritoneal cannula placed for peritoneal dialysis. The patient denied any chest pain, palpitations. No nausea, vomiting. No high-grade fever, chills. Denied any diarrhea, blood or mucus in the stool. PAST MEDICAL HISTORY: Significant for coronary artery disease, hyperlipidemia, chronic kidney disease, bilateral hip replacement. Admission History and Physical noted. OBJECTIVE: Vital Signs: Blood pressure 130/60, pulse 82, respirations 16, temperature 98.5 degrees. Neck: Supple. No JVD. Lungs: Bibasilar crepitations. Heart: A 2/6 systolic murmur at the apex. Abdomen: Soft, globular. Bowel sounds present. Central nervous system: Alert, awake, able to move all 4 limbs. LABORATORY DATA: Hemoglobin 7.7, hematocrit 24.9, WBC count 8.37, platelet count 328,000. BUN 35 creatinine 3.5. Patient's hepatitis profile was negative. CONSIDERATION: 1. Chronic kidney disease, on hemodialysis. 2. Systolic heart failure. 3. Coronary artery disease. 4. Right pleural effusion. 5. Insulin-dependent diabetes mellitus. PLAN: Overall, the patient is doing fair. We will continue current treatment and close observation. cc: MD Darian Dukes MD
--- NOTE | 2019-10-21 13:00 | NEPHROLOGY PROGRESS NOTE ---
DATE: 10/21/2019 SUBJECTIVE: He is currently on dialysis. No chest pain, palpitation, shortness of breath, etc. OBJECTIVE: Vital Signs: Blood pressure 130/60, heart rate 82, respirations 16, afebrile. General: No acute distress. Skin: Warm and dry. Conjunctivae are pink. Neck: Neck veins are not appreciated. Heart: Regular with a rub. Lungs: Equal, no crackles. Abdomen: Soft. Extremities: No edema. IMPRESSION: 1. Chronic kidney disease 5D. Complicated by uremic pericarditis. This is his 4th consecutive dialysis treatment. No heparin. We will dialyze again tomorrow. 2. Electrolytes/acid base/volume status in target. 3. Anemia. Hemoglobin 7.7 today. He is receiving IV iron. No other changes today. cc: MD Darian Rodriguez MD
[2019-10-21] MEDS: SODIUM BICARBONATE PO SCH ×3 (13:31→17:30)
[2019-10-21] MEDS: VENOFER 200 MG in NS 150 ML IV SCH (13:31)
[2019-10-21] MEDS: PRINIVIL PO SCH (13:32)
[2019-10-21] MEDS: LOPRESSOR PO SCH ×2 (13:32→20:08)
[2019-10-21] MEDS: ASPIRIN EC PO SCH (13:32)
[2019-10-21] MEDS: PROTONIX IV SCH (20:08)
[2019-10-21] MEDS: SODIUM CHLORIDE 0.9% INJ SCH (20:08)
[2019-10-21] MEDS: FOLIC ACID 5 MG in NS 50 ML IV SCH (20:08)
[2019-10-21] MEDS ORDERED: TYLENOL PO PRN (22:23)
[2019-10-21] MEDS ORDERED: ROCEPHIN 1 GM in NS 50 ML IV ONE (22:25)
[2019-10-22 05:20] LABS: HEMATOCRIT 23.6 % (42.0-52.0); HEMOGLOBIN 7.1 g/dL (14.0-18.0); MCH 26.1 PG (27-31); MCHC 30.1 g/dL (33-37); MCV 86.8 FL (81-99); MPV 10.4 FL (7.4-10.4); RBC 2.72 XMIL (4.7-6.1); RDW 14.8 % (11.5-14.5); WBC 7.73 X1000 (4.8-10.8)
[2019-10-22 05:44] LABS: ALBUMIN 2.6 g/dL (3.5-5.0); CALCIUM 7.1 mg/dL (8.8-10.2); CREATININE 3.5 mg/dL (0.7-1.2); PHOSPHORUS 3.2 mg/dL (2.7-4.5); POTASSIUM 3.7 mmol/L (3.5-5.1)
[2019-10-22] MEDS: HUMULIN R SUBQ SCH ×4 (06:13→22:12)
[2019-10-22] MEDS: ASPIRIN EC PO SCH (09:58)
[2019-10-22] MEDS: LOPRESSOR PO SCH ×2 (09:58→20:05)
[2019-10-22] MEDS: SODIUM BICARBONATE PO SCH ×3 (09:58→17:07)
[2019-10-22] MEDS: PRINIVIL PO SCH (09:59)
[2019-10-22] MEDS: VENOFER 200 MG in NS 150 ML IV SCH (09:59)
--- NOTE | 2019-10-22 11:37 | PROGRESS NOTE ---
DATE: 10/22/2019 SUBJECTIVE: Mr. Cameron is doing better. The patient spiked a fever of 100.7 last night. Mild cough. No expectoration. Denied any sore throat. No dysuria or hematuria. The patient claims he was covered up with blanket when they checked the temperature. Denied abdominal pain, nausea, vomiting. No diarrhea, blood, or mucus in the stool. OBJECTIVE: Vital Signs: Noted. Neck: Supple. No JVD. Lungs: Bibasilar crepitation. Heart: S1 and S2 heard. Abdomen: Soft, globular. Bowel sounds present. Extremities: Minimal swelling, lower leg. No acute DVT. 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 CONSIDERATION: 1. Fever. The patient's chest x-ray done on 10/20/2019 did reveal mild interval worsening. It did show bibasilar atelectasis and infiltrate. I am going to start antibiotics, pulmonary toilet. Close observation. 2. End-stage renal disease, on dialysis. 3. Anemia, most likely of chronic disease. The patient is on iron supplement. 4. Hypertension. Overall plan discussed at length with the patient and family, and they are in agreement. cc: MD Darian Dukes MD
[2019-10-22] MEDS: FOLIC ACID 5 MG in NS 50 ML IV SCH (20:04)
[2019-10-22] MEDS: SODIUM CHLORIDE 0.9% INJ SCH (20:04)
[2019-10-22] MEDS: PROTONIX IV SCH (20:04)
[2019-10-22] MEDS: ROCEPHIN 1 GM in NS 50 ML IV SCH (22:13)
[2019-10-23] MEDS: HUMULIN R SUBQ SCH ×4 (06:08→21:16)
[2019-10-23] MEDS ORDERED: TIGHT: 0.2 ML/HR FOR DIALYSIS MISC PRN (06:17)
[2019-10-23] MEDS ORDERED: HEPARIN IV PRN (06:17)
[2019-10-23] MEDS ORDERED: NS 2,000 ML MISC PRN (06:17)
[2019-10-23] MEDS: LOPRESSOR PO SCH ×2 (12:02→21:15)
[2019-10-23] MEDS: VENOFER 200 MG in NS 150 ML IV SCH (12:02)
[2019-10-23] MEDS: ASPIRIN EC PO SCH (12:03)
[2019-10-23] MEDS: SODIUM BICARBONATE PO SCH ×4 (12:03→16:54)
[2019-10-23] MEDS: PRINIVIL PO SCH (12:03)
--- NOTE | 2019-10-23 13:59 | Diag Imaging Result Doc PS360 ---
EXAM: CHEST-2 VIEWS 10/23/2019 HISTORY: hypoxia TECHNIQUE: PA and lateral chest COMMENT: Compared to 10/20/2019 there is somewhat less pleural fluid in the minor fissure. Otherwise are has been no appreciable change. There is still atelectasis or pneumonia in both lower lobes. IMPRESSION: Slightly improved right pleural effusion. Electronically signed by Delbert Wright 10/23/2019 1:56 PM
--- NOTE | 2019-10-23 15:36 | PROVIDER PROGRESS NOTE ---
Progress Note Subjective: Pt denies any complaints. He is currently receiving hemodialysis. Objective: temperature 98.7, pulse 89, respirations 19, blood pressure 153/62, 02 sat 95% on 3 L nasal cannula. General: -[place] male receiving dialysis in no acute distress getting an ultrasound. HEENT: normocephalic, atraumatic, pupils equal and reactive, mucous membranes moist. Skin: warm and dry Neck: supple, positive JVD Cardiovascular: S1S2 with a pericardial friction rub. regular rate and rhythm. Respiratory: lungs clear with equal air entry anteriorly Abdomen: soft, nontender, nondistended. Bowel sounds present. : not inspected Extremities:1+ pitting edema. Neurological: alert and oriented to person place and time. Labs: intake 1230, output 200. Impression: Chronic kidney disease stage 5, recently started hemodialysis. He is receiving hemodialysis again with a 3K bath and 2L ultrafiltration attempt, for 3.5 hours. Blood pressure. Stable. Fluid volume. Slightly expanded, he remains on nasal cannula oxygen. We will attempt to wean his o2 demand and increase his goal rate to 3500ml. Anemia. Low, we will transfuse a unit of PRBC today. Electrolytes. Stable. Acid base balance. Stable. Nutrition. Adequate.. Medication review. No changes.
[2019-10-23] MEDS: PROTONIX PO SCH (21:15)
[2019-10-23] MEDS: FOLIC ACID 5 MG in NS 50 ML IV SCH (21:16)
--- NOTE | 2019-10-23 22:03 | PROGRESS NOTE ---
DATE: 10/23/2019 SUBJECT: Events were noted over the weekend. The patient continues to have dialysis on Wednesday. His symptoms are better. The patient was seen in the dialysis unit. His edema on both legs is much improved. Waiting for a chest x-ray. Temperature is 98 degrees, pulse 82, blood pressure is 140/64, weight is 221 pounds. I's and O's was negative about -3 L. Decreased breath sounds right base.Heart: Sounds are regular. No pericardial rub. Belly is soft, nontender. Decreased edema in the legs. INVESTIGATIONS: Yesterday CBC white cell count 7, hematocrit 23, platelets 292,000. BUN 30, creatinine 3.5. Eason catheter was out. Chest x-ray improving the right pleural effusion. ASSESSMENT AND PLAN: 1. Congestive heart failure due to systolic dysfunction, ejection fraction 40%. 2. Right pleural effusion. 3. Uremic pericarditis. 4. End-stage kidney disease. 5. Benign prostatic hypertrophy. 6. Type 2 diabetes. 7. Hypertension. 8. Vitamin D deficiency. 9. Anemia due to chronic kidney disease. PLAN OF CARE: 1. Continue hemodialysis transitioning into peritoneal dialysis in the future. 2. Incentive spirometry for congestive heart failure due to systolic dysfunction. Continue metoprolol and lisinopril, replacement vitamin D, also needed anemia profile. Keep the hematocrit around more than [address] discuss [address] Loera and patient is receiving iron sucrose infusions daily next 5 days. 3. Epistaxis is better. Over the weekend patient had a fever, started on IV ceftriaxone. Will closely monitor. LEVEL OF DOCUMENTATION: 25 minutes. I spoke to the patient's caregiver at bedside. cc: Darian Chery MD
[2019-10-23] MEDS: ROCEPHIN 1 GM in NS 50 ML IV SCH (23:45)
[2019-10-24] MEDS: HUMULIN R SUBQ SCH ×4 (06:03→20:41)
[2019-10-24] MEDS: ASPIRIN EC PO SCH (08:35)
[2019-10-24] MEDS: LOPRESSOR PO SCH ×2 (08:35→20:40)
[2019-10-24] MEDS: SODIUM BICARBONATE PO SCH ×3 (08:35→17:25)
[2019-10-24] MEDS: PRINIVIL PO SCH (08:35)
[2019-10-24] MEDS: VENOFER 200 MG in NS 150 ML IV SCH (08:36)
--- NOTE | 2019-10-24 19:24 | PROVIDER PROGRESS NOTE ---
Progress Note Subjective: Pt voices tolerating hemodialysis well. He has no complaints and is asking about discharge. Objective: temperature 98.2, pulse 85, respirations 19, blood pressure 146/59, 02 sat 96% on 3 L nasal cannula. General: -[place]uanian male receiving dialysis in no acute distress getting an ultrasound. HEENT: normocephalic, atraumatic, pupils equal and reactive, mucous membranes moist. Skin: warm and dry Neck: supple, 6cm JVD Cardiovascular: S1S2 with a pericardial friction rub. regular rate and rhythm. Respiratory: lungs clear with equal air entry anteriorly Abdomen: soft, nontender, nondistended. Bowel sounds present. : not inspected Extremities: Trace edema to BLE Neurological: alert and oriented to person place and time. Labs: intake 690, output 3600. Impression: Chronic kidney disease stage 5, recently started hemodialysis. He achieved a 3.5L ultrafiltration yesterday without complications. We will hold off on hem odialysis today and assess tomorrow. Blood pressure. Stable. Fluid volume. Slightly expanded. Improving. Monitor. Continue to wean oxygen demand down. Anemia. PRBCs given yesterday. Will check his hemoglobin and hematocrit tomorrow. Electrolytes. Stable. Acid base balance. Stable. Nutrition. Adequate.. Medication review. No changes.
--- NOTE | 2019-10-24 19:31 | PROGRESS NOTE ---
DATE: 10/24/2019 SUBJECTIVE: The patient is better. He is not getting dialysis today. He is still requiring oxygen. His weight is 221 pounds. He is not offering any complaints. OBJECTIVE: Is 98 degrees, pulse 64, blood pressure is 147/60, 97%.HEENT: Exam slightly anemic. Chest: Auscultation decreased breath sounds on the right side. Heart: Sounds are regular. Abdomen: Belly is soft, nontender. Extremities: No peripheral edema noted. I's and O's -2.9 L. INVESTIGATIONS: None reported. ASSESSMENT AND PLAN: 1. Systolic heart failure, continue on metoprolol 25 p.o. b.i.d., lisinopril 10 daily. 2. Folic acid deficiency, IV folic acid. 3. Anemia, iron infusion continue until tomorrow. 4. Fever. No signs of infection noted. Empirically on IV ceftriaxone. 5. Diabetes on insulin scale with sliding coverage. 6. GI prophylaxis with IV Protonix. 7. Right pleural effusion improving. Increasing incentive spirometry and repeat the chest x-ray as well as the labs. 8. Anemia. Hemoccult negative. Probably chronic kidney disease. We will defer the transfusion as per Dr. Loera. 9. Epistaxis, stable. 10. Explained to the patient at bedside fluid restriction, daily weights and slowly transitioning to peritoneal dialysis. We will follow up. LEVEL OF DOCUMENTATION: 25 minutes. cc: Darian Chery MD
[2019-10-24] MEDS: FOLIC ACID 5 MG in NS 50 ML IV SCH (20:40)
[2019-10-24] MEDS: PROTONIX PO SCH (20:41)
[2019-10-24] MEDS: ROCEPHIN 1 GM in NS 50 ML IV SCH (23:43)
[2019-10-25 05:58] LABS: HEMATOCRIT 25.2 % (42.0-52.0); HEMOGLOBIN 7.8 g/dL (14.0-18.0); MCH 26.5 PG (27-31); MCV 85.7 FL (81-99); MPV 10.4 FL (7.4-10.4); RBC 2.94 XMIL (4.7-6.1); RDW 14.8 % (11.5-14.5); WBC 6.17 X1000 (4.8-10.8)
[2019-10-25] MEDS: HUMULIN R SUBQ SCH ×4 (06:11→21:26)
[2019-10-25 06:43] LABS: ALBUMIN 2.6 g/dL (3.5-5.0); CALCIUM 7.4 mg/dL (8.8-10.2); CREATININE 5.7 mg/dL (0.7-1.2); PHOSPHORUS 4.3 mg/dL (2.7-4.5)
--- NOTE | 2019-10-25 07:45 | Diag Imaging Result Doc PS360 ---
EXAM: CHEST-2 VIEWS 10/25/2019 HISTORY: hypoxia TECHNIQUE: Two views the chest COMMENT: There is apparent pleural fluid which may be loculated on the right. There is atelectasis versus pneumonia in the right middle and lower lobes. There is ill-defined opacity throughout the left base which may be due to pulmonary edema or fibrosis. There are no previous studies prior to 10/16/2019. IMPRESSION: Right pleural effusion and atelectasis versus pneumonia in the right base. Electronically signed by Delbert Wright 10/25/2019 7:42 AM
[2019-10-25] MEDS: PRINIVIL PO SCH (08:59)
[2019-10-25] MEDS: SODIUM BICARBONATE PO SCH ×3 (08:59→18:25)
[2019-10-25] MEDS: ASPIRIN EC PO SCH (08:59)
[2019-10-25] MEDS: LOPRESSOR PO SCH ×2 (08:59→20:19)
--- NOTE | 2019-10-25 16:13 | PROVIDER PROGRESS NOTE ---
Progress Note Subjective: He voices no complaints. He is tolerating his nasal cannula oxygen at 3L. Objective: temperature 98.2, pulse 87, respirations 22, blood pressure 144/67, 02 sat 95% on 3 L nasal cannula. General: -Polish male up to wheelchair in no acute distress HEENT: normocephalic, atraumatic, pupils equal and reactive, mucous membranes moist. Skin: warm and dry Neck: supple, 6cm JVD Cardiovascular: S1S2. regular rate and rhythm. No murmur or gallop. Respiratory: lungs clear anteriorly Abdomen: soft, nontender, nondistended. Bowel sounds present. : not inspected Extremities: Trace edema to BLE Neurological: alert and oriented to person place and time. Labs: WBC 6.17, hemoglobin 7.8, hematocrit 25.2, platelet count 285, sodium 136, potassium 4.0, chloride 96, carbon dioxide 25, BUN 52, creatinine 5.7. Intake 980, output 250. Impression: Chronic kidney disease stage 5, recently started hemodialysis. He will be on a Wednesday, , Wednesday schedule as an outpatient. Because of this and no uremic complaints, we will dialyze him tomorrow. Blood pressure. Stable. Fluid volume. Euvolemic on physical exam Anemia. Low, stable. He does not meet transfusion criteria. Electrolytes. Stable. Acid base balance. Stable. Nutrition. Adequate. Medication review. No changes.
[2019-10-25] MEDS: FOLIC ACID 5 MG in NS 50 ML IV SCH (20:15)
[2019-10-25] MEDS: PROTONIX PO SCH (20:19)
--- NOTE | 2019-10-25 21:08 | PROGRESS NOTE ---
DATE: 10/25/2019 SUBJECTIVE: The patient did not go for dialysis. No fever. Chest x-ray is not improving on the right side and no fever. REVIEW OF SYSTEMS: None reported. He is still on oxygen 3 L. OBJECTIVE: Exam temp is 98 degrees, pulse is 85, blood pressure is 143/77, weight reported at 235. I's and O's positive 700 mL.HEENT: Within normal limits. Neck: Supple. Chest: Decreased pericardial rub and decreased breath sounds in the right base. Heart: Sounds are regular. Abdomen: Belly is soft, nontender. Extremities: No edema. LABS: CBC: White cell count 6.1, hematocrit 25, platelets 285,000. SMA-7 BUN 52, creatinine 5.7. ASSESSMENT AND PLAN: 1. Persistent right pulmonary effusion. Incentive spirometry. Continue hemodialysis on hold today and incentive spirometry. 2. Patient has been started on IV ceftriaxone. No signs of infection or fever noted. 3. Diabetes on sliding scale. 4. Congestive heart failure, stable on metoprolol and lisinopril. We will also evaluate home oxygen therapy if no better. Currently, he is less symptomatic for pleural effusion on the right side and will follow up. He is going dialysis tomorrow. LEVEL OF DOCUMENTATION: 35 minutes. cc: Darian Chery MD
[2019-10-25] MEDS: ROCEPHIN 1 GM in NS 50 ML IV SCH (22:21)
[2019-10-26] MEDS ORDERED: HEPARIN IV PRN (06:13)
[2019-10-26] MEDS ORDERED: NS 2,000 ML MISC PRN (06:13)
[2019-10-26] MEDS ORDERED: TIGHT: 0.2 ML/HR FOR DIALYSIS MISC PRN (06:13)
[2019-10-26] MEDS: HUMULIN R SUBQ SCH ×4 (11:37→22:34)
[2019-10-26] MEDS: SODIUM BICARBONATE PO SCH ×3 (12:53→18:40)
[2019-10-26] MEDS: ASPIRIN EC PO SCH (12:59)
[2019-10-26] MEDS: NEPHROCAPS PO SCH (12:59)
[2019-10-26] MEDS: LOPRESSOR PO SCH ×2 (12:59→22:40)
[2019-10-26] MEDS: PRINIVIL PO SCH (13:00)
[2019-10-26] MEDS: LASIX PO SCH (13:01)
--- NOTE | 2019-10-26 13:51 | PROVIDER PROGRESS NOTE ---
Progress Note Subjective: he is sitting up eating breakfast and denies any complaints. Voices tolerating leaving his oxygen off for short periods of time while using the restroom. Objective: temperature 98.7, pulse 85, respirations 18, blood pressure 148/62, 02 sat 96% on 2.5 L of nasal cannula. General: -Stateless male up to side of bed in no acute distress HEENT: normocephalic, atraumatic, pupils equal and reactive, mucous membranes moist. Skin: warm and dry Neck: supple, 6cm JVD Cardiovascular: S1S2. regular rate and rhythm. Plural friction rub noted to the mediastinal area. No murmur or gallop. Respiratory: lungs clear anteriorly Abdomen: soft, nontender, nondistended. Bowel sounds present. : not inspected Extremities: Trace edema to BLE Neurological: alert and oriented to person place and time. Labs: intake 120, output 50. Impression: Chronic kidney disease stage 5, recently started hemodialysis. We will plan on hemodialysis with a 2K bath and ultrafiltration goal of 4 L for 3.5hrs. Blood pressure. Stable. Fluid volume. Slightly expanded. We will increase his ultrafiltration goal to 4 L today. We will also start him on a oral Lasix dose to prepare for discharge. Anemia. Low, stable. He does not meet transfusion criteria. Electrolytes. Stable. Acid base balance. Stable. Nutrition. Adequate. Medication review. No changes.
--- NOTE | 2019-10-26 21:07 | PROGRESS NOTE ---
DATE: 10/26/2019 SUBJECTIVE: The patient is getting dialysis basically, Wednesday, , and Wednesday. Plan to discharge tomorrow. He is getting dialysis today. He is not offering complaints. He is anxious to go home. Obviously, I saw him in the dialysis. PHYSICAL EXAMINATION: Temperature is 98.4 degrees, pulse is 87, blood pressure is stable, 3 L nasal cannula 99%. I's and O's negative -3 L. Decreased breath sounds on the right side. Heart sounds are regular. Belly is soft, nontender. No edema. No labs were drawn. ASSESSMENT AND PLAN: 1. End-stage kidney disease on hemodialysis, chronic systolic heart failure, on metoprolol and lisinopril and fluid restrictions and daily weights. 2. Right pleural effusion. Afebrile. No need for tap on IV ceftriaxone. 3. Hypoxemia due to right pleural effusion. We will assess for home oxygen therapy. We will do the room air blood gas by respiratory therapist in the morning. T 4. Transitioning to peritoneal dialysis down the line. 5. Dimorphic anemia-folic acid, iron infusion as per Dr. Loera. 6. Chronic kidney disease maintenance care as per Dr. Loera. 7. Type 2 diabetes. We will go back on insulin Novolin 70/30 20 units subcutaneous b.i.d. and continue to hold on amlodipine. Tomorrow we are going to repeat chest x-ray, ABG, and transitioning care to home. We will ask the family whether needs outpatient home health. In the meantime, we will also assess for home oxygen evaluation. LEVEL OF DOCUMENTATION: 25 minutes. cc: Darian Chery MD
[2019-10-26] MEDS: FOLIC ACID 5 MG in NS 50 ML IV SCH (22:39)
[2019-10-26] MEDS: ROCEPHIN 1 GM in NS 50 ML IV SCH (23:27)
[2019-10-26] MEDS: PROTONIX PO SCH (23:36)
[2019-10-27 03:43] LABS: ALLEN TEST YES; BE 0.7 mmoll (-3.0-3.0); BLOOD TYPE ARTERIAL; HCO3-(ACT) 25.3 mmoll (20.0-26.0); METHB 1.2 % (0.0-1.5); O2(CT) 10.4 mL/dL (15.0-23.0); PCO2(98.6) 40 mmHg (35-45); SAMPLE BLOOD; SAO2 87.5 % (95.0-100.0); THB 8.8 g/dL (11.5-17.4); pH(98.6) 7.41 (7.35-7.45)
[2019-10-27 03:45] LABS: MODALITY ROOM AIR
[2019-10-27 03:50] LABS: O2HB 83.8 % (95.0-99.0); PO2(98.6) 46 mmHg (60-100)
[2019-10-27] MEDS: HUMULIN R SUBQ SCH ×2 (07:07→12:39)
--- NOTE | 2019-10-27 07:39 | Diag Imaging Result Doc PS360 ---
EXAM: CHEST-2 VIEWS HISTORY: hypoxia TECHNIQUE: Two views COMPARISON: 10/25/2019 FINDINGS: There is a moderate-sized right pleural effusion. Worsening right basilar infiltrates and atelectasis. Questionable tiny left effusion. Left basilar markings are similar to the prior exam. No change in the right jugular line. The heart is mildly enlarged. IMPRESSION: Mild interval worsening Electronically signed by Osman Hemphill 10/27/2019 7:37 AM
[2019-10-27] MEDS ORDERED: TIGHT: 0.2 ML/HR FOR DIALYSIS MISC PRN (09:16)
[2019-10-27] MEDS ORDERED: HEPARIN IV PRN (09:16)
[2019-10-27] MEDS ORDERED: NS 2,000 ML MISC PRN (09:16)
[2019-10-27] MEDS: VITAMIN D PO SCH (11:28)
[2019-10-27] MEDS: SODIUM BICARBONATE PO SCH (11:28)
[2019-10-27] MEDS: NEPHROCAPS PO SCH (11:28)
[2019-10-27] MEDS: PRINIVIL PO SCH (11:29)
[2019-10-27] MEDS: LOPRESSOR PO SCH (11:29)
[2019-10-27] MEDS: LASIX PO SCH (11:30)
[2019-10-27] MEDS: ASPIRIN EC PO SCH (11:30)
[2019-10-27 11:41] VITALS: BP 149/70
--- NOTE | 2019-10-27 19:58 | NEPHROLOGY PROGRESS NOTE ---
DATE: 10/27/2019 SUBJECTIVE: He is still requiring oxygen and will have to go home with O2. Denies shortness of breath, chest discomfort. He is eating well. OBJECTIVE: Vital Signs: Blood pressure 149/70, heart rate 91, respirations 24, afebrile. General: No acute distress. Skin: Warm and dry. Neck: Neck veins are not visible. Heart: Regular with no rubs. Lungs: Equal with a few crackles. Abdomen: Soft, nontender. Bowel sounds present. Extremities: Trace edema. No clubbing or cyanosis. IMPRESSION/PLAN: Chronic kidney disease 5D. His outpatient dialysis is arranged for tomorrow. We will dialyze him for 2 hours today with hemofiltration only with a goal of 3 to 4 L ultrafiltration in order to help address his pleural effusion. Repeat tomorrow. cc: MD Darian Rodriguez MD
--- NOTE | 2019-10-28 21:30 | DISCHARGE SUMMARY ---
ADMISSION DATE: 10/16/2019 DISCHARGE DATE: 10/27/2019 DISCHARGING DIAGNOSIS: 1. Acute respiratory failure due to decompensated systolic congestive heart failure with right pleural effusion. 2. Uremic pericarditis. 3. End-stage kidney disease, currently controlled on hemodialysis transitioning into peritoneal dialysis in the future. 4. Noncritical CAD with mild circumflex and LAD. 5. Type 2 diabetes complicated with nephropathy, neuropathy, hypertension, hyperlipidemia, hyperuricemia, history of nephrotic syndrome resulting into end-stage kidney disease, lumbar spinal stenosis, bilateral hip replacement, history of PTCA of right coronary artery. CONSULTS: 1. Dr. Loera. 2. Dr. Wilkinson. 3. Dr. Toro. PROCEDURES: Tunneled catheter on the right side for temporary dialysis and PD catheter in the future. Echocardiography findings. The EF is around 40%. Small posterior pericardial effusion. Severe pulmonary hypertension based on the TR velocity. BRIEF HISTORY: Please see the H and P that was done by Dr. Cox. In brief, he is a 74-year-old male with above problems, chronic kidney disease stage 5, nephrotic syndrome from diabetes and hypertension, waiting to be renal replacement therapy down the line thinking to peritoneal dialysis in the future came to the hospital with weight gain 30 pounds, shortness of breath, PND, orthopnea. Precordial chest pain. The patient was breathing very hard with hypoxemia requiring 50% Ventimask. The patient was seen in the emergency room. I discussed with Dr. Loera. In the meantime, the patient was admitted by Dr. Cox. The patient was placed on Eason catheter and given 200 mg of Lasix resulted to 1200 mL of urine output. He also had significant pericardial rub and tachycardia noted. As a result, a temporary hemodialysis was initiated. He has a moderate pleural effusion on the right side. Dr. Toro was consulted. He did PD catheter as well as tunneled catheter on the right side. The patient was given successive hemodialysis, removed about 50 L of fluid. His weight came down to 255 to 230 pounds. The patient was given fluid restrictions and daily weights. Eason was discontinued. He is still making some urine. Pericarditis was much improved. LABS: White cell count 6.7, hematocrit 25, platelets 285,000. Stool for occult blood is negative. ABG on room air pH is 7.41, pCO2 40, PO2 46 on room air. Chest x-ray continue to have fluid in the right lung. There was no signs of infection noted. Sodium 136, potassium 4, BUN 52, creatinine 5.7, blood sugars running very well. Phosphorus 4.3. Radiology procedures 1 Renal ultrasound medical renal disease. No evidence of obstructive uropathy. Bladder volume is 126 mL and right kidney 10.5, the left one is 10.7. 2.. Chest CT bilateral pleural effusion, right greater than the left. Cardiomegaly with atherosclerotic coronary calcification and compressive atelectasis of the right lower lobe with pleural effusion. 1. The patient was also given 5 doses of Venofer for iron infusion as well as folic acid. At the time of discharge his weight is about 219 pounds after dialysis. 2. I did advise the pneumococcal vaccine 13. Patient has refused. 3. Home oxygen 3 L by [facility]. 4. Metoprolol 25 p.o. b.i.d. 5. Aspirin 81 mg daily. 6. Novolin 70/30 20 units subcutaneous b.i.d. 7. Sodium bicarbonate 650 p.o. t.i.d. 8. Vitamin D 51848 once a week. 9. Nephrocaps 1 tablet daily. 10. Lasix 80 daily. 11. Lisinopril 10 daily. 12. PhosLo 667 mg p.o. t.i.d. 13. I stopped the amlodipine. Continue to monitor. Added lisinopril which was stopped before due to hyperkalemia. Since the patient is going dialysis it is not an issue since the EF is down to 40%. DISCHARGE INSTRUCTION: Incentive spirometry every 2 hours and follow up in my office in next week as well as Dr. Loera to maintain the hemodialysis Tuesdays, , and Saturdays. cc: MD Rd Doty MD Jason R. Seale, MD Reginald D. Gladish, MD MTDD
== END 2019-10-27 13:04 | disposition home or self-care (01) | DRG 981 ==
LOC: ED 11:43 → EDIPHOLD 18:41 → 3N 20:09 → 1N 10-18 17:40
PROVIDERS: ADMIT Internal Medicine; ATTEND Internal Medicine